=== PATIENT | female | born 2000 | race African-American/Black ===

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

== ENCOUNTER 2022-01-29 10:10 | Emergency (ER) | payer OTHER | END 2022-01-29 11:51 | disposition home or self-care (01) | LOC: BURERS 10:10 | DX: J45.901 Unspecified asthma with (acute) exacerbation (principal); F17.210 Nicotine dependence, cigarettes, uncomplicated | CPT/HCPCS: J7620 ==

== ENCOUNTER 2022-07-30 07:59 | Emergency (ER) | payer OTHER ==
[2022-07-30] MEDS ORDERED: Ipratropium/Albuterol 3 ML NEB ONE (08:03)
[2022-07-30] MEDS ORDERED: Dexamethasone 4 MG TAB ONE (08:21)
== END 2022-07-30 08:35 | disposition home or self-care (01) ==
LOC: BURERS 07:59
DX: J45.901 Unspecified asthma with (acute) exacerbation (principal); F17.210 Nicotine dependence, cigarettes, uncomplicated
CPT/HCPCS: J7620; J8540

== ENCOUNTER 2022-12-02 11:42 | Emergency (ER) | payer OTHER ==
[2022-12-02 12:04] LABS: Bilirubin Small (Negative); Blood, Urine Moderate (Negative); Glucose, Urine (Dipstick) Negative (Negative); Ketone, Urine 80 mg/dL (Negative); Leukocyte Trace (Negative); Nitrite Negative (Negative); Protein, Urine (Dipstick) 30 mg/dL (Neg-Trace)
[2022-12-02 12:13] LABS: Clarity Hazy (Clear); Specific Gravity, Urine 1.032 (1.002-1.036)
[2022-12-02 12:14] LABS: Bacteria/HPF Rare-Few HPF (None Seen); CAUTI Indications for Culture Dysuria,urgency,freq
[2022-12-02 12:16] LABS: Urine Culture Reflex No No
[2022-12-02 12:29] LABS: Pregnancy Test - Urine (BHCG) Negative (Negative); Pregu Control Background? CLEAR/WHITE (CLR/WHITE); Pregu Control Bar Appear? YES (CONTROL BAR); Specific Gravity 1.032 (1.002-1.036)
[2022-12-02] MEDS ORDERED: Sulfameth/Trimethoprim DS 800-160mg TAB ONE (13:13)
[2022-12-02] MEDS ORDERED: Cephalexin 250 MG CAP ONE (13:13)
[2022-12-02 20:10] LABS: Chlam.trachomatis by PCR,Urine Not Detected (NotDetected); GC N.gonorrhoeae PCR,UrineVOID Not Detected (NotDetected)
== END 2022-12-02 13:44 | disposition home or self-care (01) ==
LOC: BURERS 11:42
DX: N39.0 Urinary tract infection, site not specified (principal); L30.9 Dermatitis, unspecified; F17.290 Nicotine dependence, other tobacco product, uncomplicated
CPT/HCPCS: 81001; 81025; 87086; 87255; 87491; 87591; 99283

== ENCOUNTER 2023-01-13 09:38 | Emergency (ER) | payer OTHER ==
[2023-01-13] MEDS ORDERED: Ipratropium/Albuterol 3 ML NEB ONE (09:48)
[2023-01-13] MEDS ORDERED: Dexamethasone 10 MG/ML VIAL ONE (10:07)
== END 2023-01-13 10:17 | disposition home or self-care (01) ==
LOC: BURERS 09:38
DX: J45.901 Unspecified asthma with (acute) exacerbation (principal); Z79.899 Other long term (current) drug therapy; F17.290 Nicotine dependence, other tobacco product, uncomplicated
CPT/HCPCS: 99284; J1100; J7620

== ENCOUNTER 2023-09-07 23:37 | Emergency (ER) | payer OTHER ==
[2023-09-07] MEDS ORDERED: Ipratropium/Albuterol 3 ML NEB ONE (23:46)
[2023-09-07] MEDS ORDERED: predniSONE 20 MG TAB ONE (23:58)
[2023-09-08] MEDS ORDERED: Ipratropium/Albuterol 3 ML NEB ONE (00:07)
== END 2023-09-08 00:29 | disposition home or self-care (01) ==
LOC: BURERS 23:37
DX: J45.901 Unspecified asthma with (acute) exacerbation (principal); F17.210 Nicotine dependence, cigarettes, uncomplicated
CPT/HCPCS: J7512; J7620

== ENCOUNTER 2024-01-18 09:35 | Emergency (ER) | payer OTHER, SELFPAY ==
[2024-01-18] MEDS ORDERED: Ipratropium/Albuterol 3 ML NEB ONE (09:42)
[2024-01-18] MEDS ORDERED: Dexamethasone 10 MG/ML VIAL ONE (10:12)
== END 2024-01-18 10:30 | disposition home or self-care (01) ==
LOC: BURERS 09:35
DX: J45.901 Unspecified asthma with (acute) exacerbation (principal); F17.210 Nicotine dependence, cigarettes, uncomplicated; F17.290 Nicotine dependence, other tobacco product, uncomplicated
CPT/HCPCS: J1100; J7620

== ENCOUNTER 2024-12-30 18:36 | Emergency (ER) | payer SELFPAY ==
[2024-12-30] MEDS ORDERED: Dexamethasone 10 MG/ML VIAL ONE (19:06)
== END 2024-12-30 19:12 | disposition home or self-care (01) ==
LOC: BURERS 18:36
DX: J06.9 Acute upper respiratory infection, unspecified (principal); J45.909 Unspecified asthma, uncomplicated; Z87.891 Personal history of nicotine dependence
CPT/HCPCS: 99283; J1100

== ENCOUNTER 2025-04-03 09:02 | Emergency (ER) | payer SELFPAY ==
[2025-04-03] MEDS ORDERED: Magnesium 2 GM/50 ML BAG (IN WATER) ONE (09:30)
[2025-04-03 09:34] LABS: #Basophils 0.0 thou/uL (0.0-0.2); #Eosinophils 0.2 thou/uL (0.0-0.7); #Lymphocytes 0.5 thou/uL (1.20-3.40); #Monocytes 0.2 thou/uL (0.11-0.59); #Neutrophils 4.4 thou/uL (1.40-6.50); %Basophils 0.4 % (0.0-1.0); %Eosinophils 3.2 % (0.0-10.0); %Lymphocytes 8.5 % (21.0-51.0); %Monocytes 3.2 % (0.0-10.0); %Neutrophils 84.7 % (42.0-75.0); Hematocrit 35.0 % (36.0-47.0); Hemoglobin 10.4 g/dL (12.0-16.0); Mean Corpuscular Hemoglobin 21.9 pg (27.0-31.0); Mean Corpuscular Volume 73.8 fl (78.0-98.0); Platelet Count 174 10x3/uL (130-400); Red Blood Cell (RBC) Count 4.75 mill/uL (4.20-5.40); White Blood Cell (WBC) Count 5.2 10x3/uL (4.8-10.8)
[2025-04-03 09:47] LABS: BHCG - Serum Negative (NEGATIVE); Pregs Control Background? CLEAR/WHITE (CLR/WHITE); Pregs Control Bar Appear? YES (CONTROL BAR)
[2025-04-03 09:54] LABS: ALT (SGPT) 10 U/L (Less than 34); AST (SGOT) 21 U/L (11-34); Albumin 4.0 g/dL (3.1-4.5); Alkaline Phosphatase 50 U/L (40-110); Anion Gap 16 mmol/L (10-20); BUN (Urea Nitrogen) 7 mg/dL (7.0-18.7); Bilirubin, Total 0.4 mg/dL (0.3-1.2); Calc. Creatinine Clearance 0 mL/min (70-130); Calcium 8.9 mg/dL (7.8-10.44); Carbon Dioxide 16 mmol/L (22-29); Globulin 3.0 g/dL (2.4-3.5); Glucose 114 mg/dL (70-105); Potassium 3.7 mmol/L (3.5-5.1)
[2025-04-03 09:56] LABS: Troponin I 0.030 ng/mL (< 0.028)
[2025-04-03 09:59] LABS: Chloride 111 mmol/L (98-107); Sodium 139 mmol/L (136-145)
[2025-04-03 10:05] LABS: Anisocytosis SLIGHT = 6-15 cells (100X) (0-5/hpf); MDiff Complete? YES; Microcytosis SLIGHT = 6-15 cells (100X) (0-5/hpf); Platelet Adequacy Comment Appears Adequate
[2025-04-03] MEDS ORDERED: Albuterol 200 PUFF (6.7GM INHALER) ONE (10:43)
[2025-04-03 11:10] LABS: Troponin I 0.032 ng/mL (< 0.028)
[2025-04-03 11:24] LABS: Glucose, Urine (Dipstick) Negative (Negative); Leukocyte Small (Negative); Protein, Urine (Dipstick) Negative (Neg-Trace); Specific Gravity, Urine 1.010 (1.005-1.030)
[2025-04-03 11:34] LABS: RBC/HPF None Seen HPF (0-3)
[2025-04-03 11:35] LABS: Bacteria/HPF Rare-Few HPF (None Seen); CAUTI Indications for Culture Alt mental st,lethar; Trichomonas/HPF 1+ HPF (None Seen); WBC/HPF 0-3 HPF (0-3)
[2025-04-03 11:37] LABS: Cocaine Metabolite Screen Negative (Negative); THC/Cannabinoid Screen PRELIM POSITIVE (Negative); Tricyclic Screen Negative (Negative)
[2025-04-03 11:39] LABS: Urine Culture Reflex No No
== END 2025-04-03 11:54 | disposition home or self-care (01) ==
LOC: BURERS 09:02
DX: J45.901 Unspecified asthma with (acute) exacerbation (principal); F17.210 Nicotine dependence, cigarettes, uncomplicated; F17.290 Nicotine dependence, other tobacco product, uncomplicated; Z79.899 Other long term (current) drug therapy
CPT/HCPCS: 36415; 71275; 80053; 80306; 81001; 84484; 84703; 85025; 96365; 96366; 96375; J2919; J3475